=== PATIENT | female | born 1990 | race Caucasian/White ===

== ENCOUNTER 2018-01-19 12:47 | Emergency (ER) | payer OTHER ==
[~2018-01-19] VITALS: Ht 167.6 cm; Wt 54.4 kg
[2018-01-19] MEDS ORDERED: [UNRECOGNIZED DRUG - REMARK] (12:54)
[2018-01-19] MEDS ORDERED: [UNRECOGNIZED DRUG - REMARK] (12:54)
[2018-01-19] MEDS ORDERED: HYDROCODONE/APAP 10-325 MG TABLET PO ONE (13:00)
[2018-01-19] MEDS ORDERED: KETOROLAC TROMETHAMINE 30 MG INJ ONE (13:00)
[2018-01-19] MEDS ORDERED: HYDROCODONE/APAP 10-325 MG TABLET ONE (13:00)
[2018-01-19] MEDS ORDERED: KETOROLAC TROMETHAMINE 30 MG INJ IM ONE (13:00)
[2018-01-19 13:10] LABS: BASOPHILS % (AUTO) 0.5 % (0.0-2.0); EOSINOPHILS % (AUTO) 0.4 % (0.0-7.0); HEMOGLOBIN 14.4 g/dL (10.9-14.3); LYMPHOCYTES # (AUTO) 1.4 K/uL (20.0-40.0); LYMPHOCYTES % (AUTO) 20.5 % (20.5-51.5); MEAN CORPUSCULAR HEMOGLOBIN 28.8 uug (24.7-32.8); MEAN CORPUSCULAR HGB CONC 33 g/dL (32.3-35.6); MEAN CORPUSCULAR VOLUME 86.3 fL (75.5-95.3); MONOCYTES # (AUTO) 0.5 K/uL (2.0-10.0); MONOCYTES % (AUTO) 6.8 % (0.0-11.0); NEUTROPHILS # (AUTO) 5.1 K/uL (1.8-8.9); NEUTROPHILS % (AUTO) 71.8 % (38.5-71.5); PLATELET COUNT (AUTO) 150 K/uL (179-408); RED BLOOD CELL COUNT(AUTO) 4.98 MIL/uL (3.63-4.92); WHITE BLOOD COUNT (AUTO) 7.1 K/uL (3.8-11.8)
[2018-01-19] MEDS ORDERED: MORPHINE SULFATE 4 MG/1 ML DISP.SYRIN IV ONE (13:15)
[2018-01-19] MEDS ORDERED: DIAZEPAM 10 MG/2 ML DISP.SYRIN IV ONE (13:15)
[2018-01-19] MEDS ORDERED: DIAZEPAM 2 MG TABLET PO ONE (13:15)
[2018-01-19 13:18] LABS: CREATININE 0.8 mg/dL (0.6-1.3); POTASSIUM 3.7 mmol/L (3.5-5.1)
[2018-01-19] MEDS ORDERED: DIAZEPAM 5 MG TABLET ONE (13:19)
[2018-01-19] MEDS ORDERED: MORPHINE SULFATE 4 MG/1 ML DISP.SYRIN ONE (13:20)
[2018-01-19] MEDS ORDERED: diphenhydrAMINE 50 MG/1 ML VIAL ONE (13:32)
[2018-01-19 13:49] LABS: *BILIRUBIN,URIN NEGATIVE (NEGATIVE); *BLOOD, URINE NEGATIVE (NEGATIVE); *CLARITY,URINE CLEAR (CLEAR); *COLOR,URINE YELLOW (YELLOW); *KETONES,URINE NEGATIVE (NEGATIVE); *PROTEIN,URINE NEGATIVE (NEGATIVE); *UROBILINOGEN,URINE 0.2 E.U./dl (NORMAL); LEUKOCYTE ESTERASE ,URINE NEGATIVE (NEGATIVE); NITRITE, URINE NEGATIVE (NEGATIVE); UGLUCOSE NEGATIVE (NEGATIVE)
[2018-01-19 13:50] LABS: BACTERIA,URINE FEW /HPF (NONE SEEN); RBC,URINE 0-3 /HPF (0-3); SQUAMOUS EPITHELIAL CELL,UR FEW /HPF (NONE SEEN); WBC,URINE 0-3 /HPF (0-3)
[2018-01-19 13:56] LABS: BILIRUBIN,DIRECT 0.1 mg/dL (0.0-0.2); BILIRUBIN,TOTAL 0.3 mg/dL (0.2-1.0); TOTAL PROTEIN, SERUM 7.5 g/dL (6.4-8.2)
[2018-01-19] MEDS ORDERED: diphenhydrAMINE 50 MG/1 ML VIAL IV ONE (14:00)
--- NOTE | 2018-01-19 15:18 | NUR ---
Patient discharged to home in stable conditon. Written and verbal after care instructions given. Patient verbalizes understanding of instructions.pt and family had a long discussion with er md regarding pt care. pt walks in steady gait. pt not driving. pt accompanied by mother, father and step mother.
[2018-01-19 15:20] VITALS: BP 109/81
== END 2018-01-19 15:22 | disposition home or self-care (01) ==
LOC: ER 12:49
DX: M54.5 Low back pain (principal); Z88.1 Allergy status to other antibiotic agents
CPT/HCPCS: 36415; 71045; 83690; 84703; 85025; 93005; A4663; J1200; J1885; J2270